=== PATIENT | male | born 1950 | race Hispanic/Latino ===

== ENCOUNTER 2021-11-07 09:45 | Outpatient (CLI) | payer MEDICARE ==
[2021-11-07 11:46] LABS: Blood Urea Nitrogen 17 mg/dL (9-20)
--- NOTE | 2021-11-07 12:42 | Cat Scan Report ---
CT ABDOMEN AND PELVIS WITH CONTRAST HISTORY: Prostate cancer. COMPARISON: None. TECHNIQUE: CT images of the abdomen and pelvis were obtained before and after the administration of i ntravenous contrast. All CT scans at this location are performed using CT dose reduction for ALARA b y means of automated exposure control. CONTRAST: 100 ml of intravenous contrast administered. FINDINGS: Limited evaluation of the lung bases is unremarkable. There are multiple (at least 7) circumscribed round hypodense lesions within the liver. These show no evidence of enhancement in the overall appearance is most suggestive of cysts. Cholelithiasis is noted with otherwise unremarkable appearance of the gallbladder. Symmetric renal co rtical thinning bilaterally. No evidence of pathologically enlarged lymph nodes within the abdomen and pelvis. Small fat-containing periumbilical hernia and left inguinal hernia. The liver, kidneys, spleen, pancreas, and adrenal glands are unremarkable. Gastrointestinal tract blas ws no evidence of bowel wall thickening or pathologic distention. No free intraperitoneal gas or flui d. Prostate is enlarged measuring up to 5.6 cm in transverse dimension. The appendix is visualized and i s normal in appearance. Urinary bladder is unremarkable. There is an 8 mm slightly sclerotic lesion within the spinal process of L3 vertebral body. This is be st seen on sagittal imaging. IMPRESSION: The prostate is enlarged measuring up to 5.6 cm in transverse dimension. No evidence of pathologicall y enlarged lymph nodes within the abdomen and pelvis. There is an 8 mm slightly sclerotic lesion within the spinal process of L3 vertebral body. The presen ce of a metastatic lesion cannot be excluded. Multiple circumscribed round hypodense lesions within the liver, suspected to represent cysts. Signer Name: Sumit Chahal MD Signed: 11/07/2021 12:38 PM Workstation Name: [id number]
--- NOTE | 2021-11-07 13:51 | Nuclear Medicine Report ---
NUCLEAR MEDICINE BONE SCAN, WHOLE BODY INDICATION: Prostate cancer.. TECHNIQUE: 26.1 mCi of Tc-99m MDP were injected IV. Whole body images were obtained. COMPARISON: CT performed earlier the same day.. FINDINGS: Skeletal Structures: No focal uptake to suggest the presence of metastatic disease. Faint uptake ted g the right aspect of T7 likely reflects an area of degenerative change which can be seen on comparis on CT.. Soft Tissues: Normal. Kidneys: Normal, symmetric activity. Additional Findings: None. IMPRESSION: No evidence of osseous metastatic disease. Signer Name: Sumit Chahal MD Signed: 11/07/2021 1:46 PM Workstation Name: [id number]
== END 2021-11-07 09:46 | disposition home or self-care (01) ==
LOC: NM 09:45
PROVIDERS: ATTEND Urology
DX: C61 Malignant neoplasm of prostate (principal); K80.20 Calculus of gallbladder without cholecystitis without obstruction; K42.9 Umbilical hernia without obstruction or gangrene; N40.0 Benign prostatic hyperplasia without lower urinary tract symptoms
CPT/HCPCS: 36415; 74178; 78306; 82565; 84520; A9503; Q9967